=== PATIENT | female | born 1965 | race Caucasian/White ===

== ENCOUNTER 2025-02-07 07:55 | Day surgery (SDC) | payer BC, SELFPAY ==
--- NOTE | 2025-02-06 07:00 | EKG_ITS ---
[facility] Test Date: 2025-02-06 Pat Name: KAVITHA VILLAR Department: Room: - Gender: Female Quahogger: ANITHA : 1965 Requested By: Brenda Thomas Order Number: [id number] Reading MD: Brenda Thomas Measurements Intervals [place] Rate: 81 P: 40 WI: 156 QRS: 34 QRSD: 82 T: 31 QT: 368 QTc: 428 Interpretive Statements SINUS RHYTHM LOW QRS VOLTAGE IN PRECORDIAL LEADS [QRS DEFLECTION < 1.0 mV IN CHEST LEADS] POSSIBLE ANTERIOR MYOCARDIAL INFARCTION , PROBABLY OLD [30 ms Q WAVE IN V3/V4, OR R < 0.2 mV IN V4] No previous ECG available for comparison /[id number]
[2025-02-06 08:57] VITALS: BMI 41.5
[2025-02-06 10:01] LABS: Collection Type, Urine Clean Catch
[2025-02-06 10:21] LABS: Basophils % (Auto) 0 % (0-2.5); Eosinophils # (Auto) 0.2 Thou/mm3 (0.0-0.5); Eosinophils % (Auto) 2 % (0-10); Immature Granulocytes % (Auto) 0 % (0-0); Immature Granulocytes Auto 0.03 Thou/mm3 (0.00-0.00); Lymphocytes # (Auto) 2.7 Thou/mm3 (1.0-4.8); Lymphocytes % (Auto) 28 % (10-50); Mean Corpuscular HGB Conc 35.1 g/dl (31.0-37.0); Mean Corpuscular Hemoglobin 35.6 pg (25.0-35.0); Mean Corpuscular Volume 101 fL (80-100); Monocytes # (Auto) 0.6 Thou/mm3 (0.0-0.8); Monocytes % (Auto) 6 % (0-12); Neutrophils # (Auto) 6.2 Thou/mm3 (1.8-7.7); Neutrophils % (Auto) 63 % (37-80); Nucleated Red Blood Cell % 0 /100 WBC (0); Platelet Count 216 Thou/mm3 (140-440); RDW Standard Deviation 59.3 fL (36.4-46.3); Red Blood Count 3.65 Miln/mm3 (4.00-5.20); White Blood Count 9.8 Thou/mm3 (3.6-11.0)
[2025-02-06 10:46] LABS: Alanine Aminotransferase 20 U/L (10-49); Albumin, Serum 4.4 gm/dL (3.5-5.0); Albumin/Globulin Ratio 1.8 (1.2-2.2); Alkaline Phosphatase 115 U/L (46-116); Anion Gap 8 (7-16); Aspartate Amino Transferase 19 U/L (0-34); BUN/Creatinine Ratio 17 Ratio (12-20); Blood Urea Nitrogen 10 mg/dL (9-23); Calcium 8.8 mg/dL (8.3-10.6); Calcium (Corrected) 8.8 mg/dL (8.5-10.1); Carbon Dioxide 27.3 mMol/L (20.0-31.0); Chloride 106 mMol/L (98-107); Creatinine (Component) 0.6 mg/dL (0.6-1.3); Estimated Creatinine Clearance 116.5 mL/min (>60); Globulin 2.5 gm/dL (2.3-3.5); Glucose 104 mg/dL (74-106); Osmolality,Calculated 280 (275-295); Potassium 4.2 mMol/L (3.4-5.1); Sodium 141 mMol/L (136-145); Total Protein 6.9 gm/dL (5.7-8.2); eGFR > 60 See Note
[2025-02-06 10:57] LABS: Bacteria,Urine 2+; Bilirubin,Urine Negative (Negative); Blood,Urine 1+ (Negative); Clarity,Urine Clear (Clear/Hazy); Color,Urine Yellow (Lt Yel-Yel); Glucose, Urine Negative (Negative); Ketones,Urine Negative (Negative); Leukocyte Esterase,Urine Positive (Negative); Nitrite,Urine Negative (Negative); PH,Urine 5.5 (5.0-7.0); Protein,Urine Trace (Neg - Trace); RBC,Urine 15 /hpf (0-3); Specific Gravity,Urine 1.022 (1.001-1.035); Squamous Epithelial Cell,Urine 1 /hpf (0-5); Urobilinogen,Urine Negative mg/dL (0.0-1.0); WBC,Urine 114 /hpf (0-5)
[2025-02-07] VITALS (7 sets, daily range): BP systolic 119–136; BP diastolic 76–90; PULSE 77–83; RESP 12–20; TEMP 36.8; O2SAT 95–100; BMI 41.5
[2025-02-07] MEDS: RINGERS LACTATED 1000 ML 1,000 ML 20 ML IV (08:49)
--- NOTE | 2025-02-07 11:11 | ESOP_ITS ---
Operative Note - [facility] Procedure Date of procedure: 02/07/25 Procedure Performed: Hysteroscopy and fractional curettage using Myosure Indication: postmenopausal bleeding Pre-Op diagnosis: Postmenopausal bleeding thick endometrium on Ultrasound Post-Op diagnosis: same , small calcified submucosal fibroids Anesthesia type: General Procedure description: After an informed consent patient was taken to the operating room. She was placed in dorsal lithotomy position after receiving general anesthesia. Bladder was straight catheterized and drained after prepping and draping in the usual sterile fashion. A timeout was done. Patient had received SSI prophylaxis. Pe lvic exam revealed small cystocele small rectocele atrophic cervix and uterus anteverted normal size atrophic vaginal mucosa no adnexal masses. Placing a small speculum posteriorly in the vagina and another anteriorly, cervix was visualized. Cervical os appears stenotic. Sound could not be placed. So graduated dilators were used until 8 mm in cervical canal dilated. Then the hysteroscope after priming and using normal saline was introduced through the cervical os externally and into the cervical canal and then into the uterine cavity which is intact and shows shaggy endometrium and also small calcified submucosal fibroids on the left lateral wall and near the fundus area. Hysteroscope withdrawn endocervical curettings obtained. Then hysteroscope was placed again. Normal saline used to distend the uterine cavity, then MyoSure reach was placed and intrauterine cavity was sampled with the MyoSure. Pictures were taken. The endometrial curettings obtained with the help of MyoSure were also sent for histopathology along with the endocervical curettings. Instruments withdrawn after check hysteroscopy shows an intact uterine cavity , procedure completed blood loss is 10 cc. Instrument and sponge count is correct. Patient tolerated the procedure well was held and sent to PACU in stable condition. Specimen: other (Endocervical curettings and endometrial curettings with Myosure device ) Estimated blood loss (ml): 10 Findings: see procedure . uterocervical length is 7 cm , shaggy endometrium and also small submucosal calcified fibroids Complications: none Narrative: see procedure , deficit is 130 cc Surgical staff Operation Date: 02/07/25 10:05 Case Staff RAIL CAR PAINTER/SANDBLASTER: Sanket Haile Diagnosis Problem List Completed Was Problem List Reviewed/Reconciled?: Yes
--- NOTE | 2025-02-07 11:34 | SUR.PHASEI ---
1111: Pt received in [facility] via girma. Report from Williams NINA and Itzel DEL TORO. Oral airway in place immediately dc'd by anesthesia upon arrival. Pt able to follow instruction. Resp even, unlabored. VS stable. No vaginal bleeding. No c/o pain, discomfort.
--- NOTE | 2025-02-07 11:37 | SUR.PHASEI ---
1134: Pt resting with no compliants voiced. Resp even, unlabored. VS stable. Denies pain.
--- NOTE | 2025-02-07 11:47 | SUR.PHASEII ---
1143: Pt has been resting with no complaints voiced. Resp even, unlabored. VS stable. Scant amount of bleeding on peripad. 1149: Pt sitting up tolerating po fluids with no difficulty swallowing and no n/v.
--- NOTE | 2025-02-07 12:21 | SUR.PHASEII ---
1208: Pt fully awake, oriented x3. VS stable. Denies pain. Scant bleeding on peripad. Pt dressed and assisted to transport chair. Ambulation steady. Pt and daughter stated understanding of discharge instructions. Pt discharged from [facility] in stable condition.
== END 2025-02-07 12:08 | disposition home or self-care (01) ==
PROVIDERS: Anesthesiology; Referring Provider Obstetrics & Gynecology; Visit Provider Obstetrics & Gynecology
PROC: 0U5B8ZZ Destruction of Endometrium, Via Natural or Artificial Opening Endoscopic (ICD-10-PCS; CPT 58563; principal; 2025-02-07 10:00)
DX: D25.0 Submucous leiomyoma of uterus (principal); Z01.810 Encounter for preprocedural cardiovascular examination
CPT/HCPCS: 58558; 36415; 80053; 81001; 85025; 93005; A4217; A4649; J0131; J1100; J2250; J2405; J2704; J2765; J3010; J3490; J7120